=== PATIENT | male | born 1940 | race Caucasian/White ===

== ENCOUNTER → 2016-04-05 | Day surgery (SDC) | payer MEDICARE, BC ==
[~2016-04-05] MED LIST: ALPH400C2 PO; ASPI325T PO; BENA20TA3 PO; BENA5 PO; BIOTCAP PO; FISH1000 PO; FISH100020 PO; GARL400T2 PO; GARL500T; GENTAMICIN SULFATE 80 MG/2 ML VIAL ONE; GINKO BILOBA; GNP3TAB PO; IBUP-988 PO; LACTATED RINGER'S 1000 ML INJ 1,000 ML ONE; MELA3TAB14; MIDAZOLAM HCL 2 MG/2 ML VIAL ONE; MILK250C PO; MILKPOW; MISC1CAP2 PO; MULT-135 PO; NAPR220T95 PO; ONDANSETRON HCL 4 MG/2 ML VIAL IV PUSH ONE; PERI8.6T PO; PRESCAP5 PO; PRESCAP6 PO; PROPOFOL 100 MG/10 ML INJ IV ONE; SAWPOW; SODIUM CHLORIDE 0.9% 20 ML VIAL ONE; SODIUM CHLORIDE 0.9% SOLN 100 ML BAG IV ONE; TAB-TAB PO; VITA2000 PO; VITA400C28 PO; VITA400C70 PO; [UNRECOGNIZED DRUG - CODE] PO; [UNRECOGNIZED DRUG - CODE] PO; [UNRECOGNIZED DRUG - CODE] PO
--- NOTE | 2016-04-05 11:00 | TN ---
cc: KIMBERLY COLLINS M.D. DATE OF SURGERY: 04/05/2016 PREOPERATIVE DIAGNOSIS 1. Persistent suspicious cytology. 2. Family history of bladder cancer. POSTOPERATIVE DIAGNOSIS Bladder tumor (ICD-10 code D41.1). PROCEDURE Cystourethroscopy with bladder washings and transurethral resection of bladder tumor (TURBT) (CPT code 45981 and 65490). INDICATIONS Mr. Andrews is a 75-year-old gentleman with a history of persistent urine cytology which is suspicious for malignancy. He has previously undergone evaluations and unable to find the source. He presents now for further evaluation and possible random bladder biopsies and retrograde pyelography. FINDINGS Normal anterior urethra. The posterior urethra shows some mild to moderate bulbomembranous urethral stricture. The prostate shows bilobular bilateral hypertrophy with some mild obstructive component. The bladder itself shows some mild trabeculation. Ureteral orifice normal size, shape and position, effluxing clear urine. There is in the left lateral wall a small less than 5 mm sessile tumor consistent with transitional cell carcinoma. No additional abnormalities were identified. DETAILS OF PROCEDURE The procedure as well as the risks and benefits were explained to the patient and informed consent was obtained. The patient was taken to the major operative theatre where he was placed in the supine position. The patient was identified as well as the operative site. A universal timeout was performed in the standard fashion. At this time general anesthetic and prophylactic intravenous antibiotics consisting of gentamicin 80 mg was administered. After adequate anesthetic he was placed in low dorsal lithotomy position and prepped and draped in the usual standard fashion. At this time a 21-Polish cystoscope with a 30-degree lens was inserted into the urethra and bladder without difficulty. Using both a 30-degree lens and a 70-degree lens the entire bladder was systematically surveyed with the above findings. At this time using a 30-degree lens with rigid biopsy forceps the tumor was resected as well as the base of the tumor and sent separately for further pathological evaluation. At this time a Bugbee probe was then inserted to the working element of the scope and the area of biopsy was fulgurated as well as a rim of normal-appearing tissue surrounding it. Prior to the biopsy please note that bladder barbotage and bladder washings were performed using normal saline and sent for separate cytological evaluation. At this time after confirming hemostasis the bladder was decompressed, the cystoscope removed. The patient tolerated the procedure well, emerged from anesthetic without difficulty and transferred to the recovery room in stable condition to be discharged home when criteria is met. There were no obvious complications. MD TAMEKA Salazar/BENJA /10:16 AM /10:49 AM
== END | disposition home or self-care (01) ==
LOC: ESDC 06:13
PROVIDERS: ATTEND Urology
DX: C67.2 Malignant neoplasm of lateral wall of bladder (principal)
CPT/HCPCS: 00910; 51700; 52224; 76000; 88305; J1580; J2250; J2405; J3010; J7120; 88112; 88307

== ENCOUNTER 2016-07-20 14:21 | Inpatient (IN) | payer MEDICARE, BC ==
[~2016-07-20] VITALS: Ht 167.6 cm; Wt 81.2 kg
[~2016-07-20 14:21] MED LIST changes: -ALPH400C2 PO; -BENA20TA3 PO; -BIOTCAP PO; -FISH100020 PO; -GARL400T2 PO; -GENTAMICIN SULFATE 80 MG/2 ML VIAL ONE; -GNP3TAB PO; -IBUP-988 PO; -LACTATED RINGER'S 1000 ML INJ 1,000 ML ONE; -MIDAZOLAM HCL 2 MG/2 ML VIAL ONE; -MILK250C PO; -MISC1CAP2 PO; -MULT-135 PO; -NAPR220T95 PO; -ONDANSETRON HCL 4 MG/2 ML VIAL IV PUSH ONE; -PERI8.6T PO; -PRESCAP5 PO; -PRESCAP6 PO; -PROPOFOL 100 MG/10 ML INJ IV ONE; -SODIUM CHLORIDE 0.9% 20 ML VIAL ONE; -SODIUM CHLORIDE 0.9% SOLN 100 ML BAG IV ONE; -VITA2000 PO; -[UNRECOGNIZED DRUG - CODE] PO; -[UNRECOGNIZED DRUG - CODE] PO
[2016-07-20 14:27] VITALS: BP 222/96; PULSE 97; RESP 21; TEMP 98; O2SAT 96
[2016-07-20] MEDS ORDERED: HYDROmorphone HCL PF 1 MG/ML VIAL IM ONE (15:00)
[2016-07-20] MEDS ORDERED: BENA20TA3 PO (15:28)
[2016-07-20] MEDS ORDERED: ASPI325T PO (15:28)
[2016-07-20] MEDS ORDERED: VITA2000 PO (15:28)
[2016-07-20] MEDS ORDERED: PRESCAP5 PO (15:28)
[2016-07-20] MEDS ORDERED: PRESCAP6 PO (15:31)
[2016-07-20] MEDS ORDERED: MULT-135 PO (15:31)
[2016-07-20] MEDS ORDERED: ALPH400C2 PO (15:34)
[2016-07-20] MEDS ORDERED: [UNRECOGNIZED DRUG - CODE] PO (15:34)
[2016-07-20] MEDS ORDERED: FISH100020 PO (15:34)
[2016-07-20] MEDS ORDERED: GNP3TAB PO (15:39)
[2016-07-20] MEDS ORDERED: GARL400T2 PO (15:39)
[2016-07-20] MEDS ORDERED: [UNRECOGNIZED DRUG - CODE] PO (15:41)
[2016-07-20] MEDS ORDERED: MILK250C PO (15:41)
[2016-07-20] MEDS ORDERED: MISC1CAP2 PO (15:44)
[2016-07-20] MEDS ORDERED: [UNRECOGNIZED DRUG - CODE] PO (15:47)
[2016-07-20] MEDS ORDERED: BIOTCAP PO (15:48)
[2016-07-20] MEDS ORDERED: NAPR220T95 PO (15:49)
[2016-07-20] MEDS ORDERED: IBUP-988 PO (15:49)
--- NOTE | 2016-07-20 16:05 | RADRPT ---
EXAM DATE/TIME: 07/20/2016 15:43 [facility] COMPARISON: HUMERUS RIGHT (MIN 2VWS), July 20, 2016, 15:42. INDICATIONS : Right elbow pain after running into garage. MEDICAL HISTORY : None. SURGICAL HISTORY : None. ENCOUNTER: Initial ACUITY: 1 day PAIN SCORE: 10/10 LOCATION: Right elbow. FINDINGS: There is a comminuted fracture of the proximal ulna with distracted fragments extending over 3 cm. Th ere is soft tissue swelling posterior to the elbow. Radial head appears intact. CONCLUSION: Comminuted fracture of the proximal ulna. Boogie Schrader MD on July 20, 2016 at 16:01 Board Certified Radiologist. This report was verified electronically.
--- NOTE | 2016-07-20 16:06 | RADRPT ---
EXAM DATE/TIME: 07/20/2016 15:42 [facility] COMPARISON: ELBOW RIGHT LIMITED (AP & LAT), July 20, 2016, 15:43. INDICATIONS : Right humerus pain after running arm into garage door. MEDICAL HISTORY : None. SURGICAL HISTORY : None. ENCOUNTER: Initial ACUITY: 1 day PAIN SCORE: 10/10 LOCATION: Right distal humerus. FINDINGS: There is a heavily comminuted fracture of the proximal ulna at the elbow with displaced fracture frag ments seen. There is associated soft tissue swelling posterior to the olecranon. CONCLUSION: Proximal ulnar fracture. Boogie Schrader MD on July 20, 2016 at 16:04 Board Certified Radiologist. This report was verified electronically.
[2016-07-20] MEDS ORDERED: TETANUS/DIPHTHERIA TOXOID ADULT 0.5 ML VIAL IM ONE (16:30)
--- NOTE | 2016-07-20 16:43 | PD ---
HPI Chief Complaint: Fall Time Seen by Provider: 14:52 Travel History International Travel<30 days: No Contact w/Intl Traveler<30days: No Traveled to known affect area: No History of Present Illness HPI Is a 75-year-old man who presents to the emergency department after slip and fall on the rain. He was rushing in the rain to get into his garage, the pressure was already open an enema in the head knocking him backward onto his right side injuring his right elbow. He has severe right elbow pain. No LOC. His a superficial laceration was forehead. Tetanus is not up-to-date. No other complaints. On 2 aspirin daily. No blood thinners. History Past Medical History Narrative Medical Hypertension History of bladder CA, minimal, treated with local resection normally Social History Alcohol Use: Yes (4 GLASSES WINE NIGHTLY) Tobacco Use: No Allergies-Medications (Allergen,Severity, Reaction): Coded Allergies: No Known Allergies (Verified , 07/20/16) Reported Meds & Prescriptions Reported Meds & Active Scripts Active Reported Advil (Ibuprofen) 200 Mg Tab 400 Mg PO EVERY OTHER DAY Aleve (Naproxen Sodium) 220 Mg Tab 440 Mg PO EVERY OTHER DAY Biotin Unknown Strength Cap Unknown Dose PO HS Beta Carotene Unknown Strength Cap Unknown Dose PO HS Saw [place] Plus (Lang-8 Natural Products) 1 Cap Cap 900 Mg PO HS Milk Thistle 250 Mg Cap 250 Mg PO HS Gnp Melatonin (Melatonin) 3 Mg Tab 12 Mg PO HS Garlic 400 Mg Tab 800 Mg PO HS Alph-E (Vitamin E) 400 Unit Cap 400 Units PO HS Vitamin A 25,000 Unit Cap 25,000 Units PO HS Fish Oil 1000 mg ([place]-3 Fatty Acids) 1 Cap Cap 1,000 Mg PO HS Multi Vitamin (Multiple Vitamin) 1 Tab Tab 1 Tab PO HS Preservision-Lutein (Multiple Vitamins W/ Minerals) 1 Cap 1 Cap PO HS Vitamin D3 (Cholecalciferol) 2,000 Unit Cap 2,000 Units PO DAILY Benazepril-Hydrochlorothiazide 20-12.5 Mg Tab 1 Tab PO DAILY Aspirin 325 Mg Tab 650 Mg PO DAILY Review of Systems Except as stated in HPI: all other systems reviewed are Neg Physical Exam Narrative GENERAL: 68 several man, uncomfortable, nontoxic. SKIN: Focused skin assessment warm/dry. HEAD: Normocephalic. Superficial laceration to the forehead. EYES: Pupils equal and round. No scleral icterus. No injection or drainage. ENT: No nasal bleeding or discharge. Mucous membranes pink and moist. NECK: Trachea midline. No JVD. CARDIOVASCULAR: Regular rate and rhythm. No murmur appreciated. RESPIRATORY: No accessory muscle use. Clear to auscultation. Breath sounds equal bilaterally. GASTROINTESTINAL: Abdomen soft, non-tender, nondistended. Hepatic and splenic margins not palpable. MUSCULOSKELETAL: Obvious swelling to the right elbow. Severe pain with any range of motion. Distally intact. NEUROLOGICAL: Awake and alert. No obvious cranial nerve deficits. Motor grossly within normal limits. Normal speech. PSYCHIATRIC: Appropriate mood and affect; insight and judgment normal. Data Data Last Documented VS Vital Signs Date Time Temp Pulse Resp B/P Pulse Ox O2 Delivery O2 Flow Rate FiO2 07/20/16 14:27 98.0 97 21 222/96 96 Orders Hydromorphone Pf Inj (Dilaudid Pf Inj) (07/20/16 15:00) Humerus (Min 2vws) (07/20/16 ) Elbow, Limited (Ap&Lat) (07/20/16 ) Complete Blood Count With Diff (07/20/16 16:17) Comprehensive Metabolic Panel (07/20/16 16:17) Chest, Single Ap (07/20/16 ) Electrocardiogram (07/20/16 ) Iv Access Insert/Monitor (07/20/16 16:17) Tetanus/Diphtheria Tox Adult (Tetanus/Di (07/20/16 16:30) [employer] Request For Service (07/20/16 16:21) [facility] Medical Decision Making Medical Screen Exam Complete: Yes Emergency Medical Condition: Yes Interpretation(s) Right elbow x-ray: Proximal ulnar fracture. Differential Diagnosis Elbow fracture, contusion, dislocation, other Narrative Course Medical decision making This 75-year-old man who presents to the emergency department complaining of right elbow pain, x-ray confirms severely comminuted olecranon fracture. Spoke with Rafat, with Dr. Cavanaugh. We'll plan on surgical repair tomorrow. Admission to medicine. Diagnosis Primary Impression: Fracture, ulna, proximal Admitting Information Admitting Physician Requests: Admit Julio C Villa MD July 20, 2016 16:43
[2016-07-20 16:49] LABS: AUTOMATED NEUTROPHIL # 3.1 TH/MM3 (1.8-7.7); BASOPHIL % 0.6 % (0.0-2.0); EOSINOPHIL # 0.3 TH/MM3 (0-0.4); EOSINOPHIL % 4.1 % (0.0-4.0); HEMATOCRIT 42.5 % (39.0-51.0); HEMO FLAGS DIFF FINAL; LYMPH % 34.1 % (9.0-44.0); LYMPHOCYTE # 2.1 TH/MM3 (1.0-4.8); MEAN CELL VOLUME 90.7 FL (80.0-100.0); MEAN CORPUSCULAR HEMOGLOBIN 31.2 PG (27.0-34.0); MEAN CORPUSCULAR HGB CONC 34.4 % (32.0-36.0); MONO % 10.1 % (0.0-8.0); NEUT % 51.1 % (16.0-70.0); PLATELET COUNT 134 TH/MM3 (150-450); RED BLOOD COUNT 4.69 MIL/MM3 (4.50-5.90); RED CELL DISTRIBUTION WIDTH 14.1 % (11.6-17.2); WHITE BLOOD COUNT 6.1 TH/MM3 (4.0-11.0)
[2016-07-20 16:53] LABS: ALKALINE PHOSPHATASE 61 U/L (45-117); ALT (GPT) 76 U/L (12-78); ANION GAP 10 MEQ/L (5-15); AST (GOT) 54 U/L (15-37); BICARBONATE 26.5 MEQ/L (21.0-32.0); BLOOD UREA NITROGEN 17 MG/DL (7-18); CHLORIDE 104 MEQ/L (98-107); GLOMERULAR FILTRATION RATE 73 ML/MIN (>89); SODIUM (NA) 140 MEQ/L (136-145); TOTAL BILIRUBIN ADULT 0.5 MG/DL (0.2-1.0)
[2016-07-20 16:59] LABS: POTASSIUM 4.2 MEQ/L (3.5-5.1)
[2016-07-20] MEDS ORDERED: HYDROmorphone HCL PF 1 MG/ML VIAL IVS ONE (17:00)
--- NOTE | 2016-07-20 17:10 | HHI.HP ---
[facility]Staff Admission Diagnosis right olecranon fx Diagnoses: Chief Complaint: Elbow pain Travel History International Travel<30 Days: No Contact w/Intl Traveler <30 Da: No Traveled to Known Affected Are: No History of Present Illness Written by Chirag Tenorio, acting as scribe for Dr. Ruiz on 07/20/16 at 17:02. 75-year-old male with a past medical history of HTN who presented after a fall. The patient states that he was riding in the rain today and trying to open his garage door when he slipped, fell, landed into his garage floor. He states that he initially struck his right elbow against the garage door and had immediate, severe pain. He states that his elbow broke his fall, but he did hit his head as well. He denies any loss consciousness. He denies any new numbness or tingling. He takes aspirin at home because he wants to, denies any history of heart disease. The patient actually had preop cardiology evaluation at the [facility] in February before cataract surgery. Dr. Esparza with orthopedics was contacted from the ED and plan on operative intervention of comminuted right ulnar fracture. Review of Systems Except as stated in HPI: all other systems reviewed are Neg Past Family Social History Past Medical History Hypertension Mild COPD Past Surgical History Appendectomy Hernia surgery Lithotripsy next and cataract surgery Bladder cancer removal Reported Medications Advil (Ibuprofen) 200 Mg Tab 400 Mg PO EVERY OTHER DAY Aleve (Naproxen Sodium) 220 Mg Tab 440 Mg PO EVERY OTHER DAY Biotin Unknown Strength Cap Unknown Dose PO HS Beta Carotene Unknown Strength Cap Unknown Dose PO HS Saw [place] Plus ([employer] Natural Products) 1 Cap Cap 900 Mg PO HS Milk Thistle 250 Mg Cap 250 Mg PO HS Gnp Melatonin (Melatonin) 3 Mg Tab 12 Mg PO HS Garlic 400 Mg Tab 800 Mg PO HS Alph-E (Vitamin E) 400 Unit Cap 400 Units PO HS Vitamin A 25,000 Unit Cap 25,000 Units PO HS Fish Oil 1000 mg ([place]-3 Fatty Acids) 1 Cap Cap 1,000 Mg PO HS Multi Vitamin (Multiple Vitamin) 1 Tab Tab 1 Tab PO HS Preservision-Lutein (Multiple Vitamins W/ Minerals) 1 Cap 1 Cap PO HS Vitamin D3 (Cholecalciferol) 2,000 Unit Cap 2,000 Units PO DAILY Benazepril-Hydrochlorothiazide 20-12.5 Mg Tab 1 Tab PO DAILY Aspirin 325 Mg Tab 650 Mg PO DAILY Allergies: Coded Allergies: No Known Allergies (Verified , 07/20/16) Active Ordered Medications Current Medications Medications (Trade) Dose Ordered Sig/Marian Route Start Time Stop Time Status Last Admin (Dilaudid Pf Inj) 1 mg ONCE ONCE IVS 07/20/16 17:00 07/20/16 17:01 Family History Mother passed from breast cancer Father passed from bladder cancer Social History The patient drinks the fifth of wine every night, denies problems with withdrawal Denies any tobacco use Lives at home with his Physical Exam Vital Signs Vital Signs Date Time Temp Pulse Resp B/P Pulse Ox O2 Delivery O2 Flow Rate FiO2 07/20/16 14:27 98.0 97 21 222/96 96 Physical Exam GENERAL: Well-developed well-nourished. In no acute distress. SKIN: Warm and dry. Superficial abrasion on the forehead. HEENT: Normocephalic. Pupils equal and round. Mucous membranes pink and moist. CARDIOVASCULAR: Regular rate and rhythm. No murmur appreciated. RESPIRATORY: No accessory muscle use. Clear to auscultation. Breath sounds equal bilaterally. GASTROINTESTINAL: Abdomen soft, non-tender, nondistended. Bowel sounds x4. MUSCULOSKELETAL: Right arm splinted. Able to move fingers on right hand. No clubbing or cyanosis. No edema. NEUROLOGICAL: Awake and alert. No focal neurological deficits. Moves upper and lower extremities spontaneously. Normal speech. Sensation grossly intact in right hand. PSYCHIATRIC: Appropriate mood and affect; insight and judgment normal. Laboratory Laboratory Tests Test 07/20/16 16:20 White Blood Count 6.1 Red Blood Count 4.69 Hemoglobin 14.6 Hematocrit 42.5 Mean Corpuscular Volume 90.7 Mean Corpuscular Hemoglobin 31.2 Mean Corpuscular Hemoglobin 34.4 Concent Red Cell Distribution Width 14.1 Platelet Count 134 Mean Platelet Volume 9.8 Neutrophils (%) (Auto) 51.1 Lymphocytes (%) (Auto) 34.1 Monocytes (%) (Auto) 10.1 Eosinophils (%) (Auto) 4.1 Basophils (%) (Auto) 0.6 Neutrophils # (Auto) 3.1 Lymphocytes # (Auto) 2.1 Monocytes # (Auto) 0.6 Eosinophils # (Auto) 0.3 Basophils # (Auto) 0.0 CBC Comment DIFF FINAL Differential Comment Sodium Level 140 Potassium Level 4.2 Chloride Level 104 Carbon Dioxide Level 26.5 Anion Gap 10 Blood Urea Nitrogen 17 Creatinine 0.99 Estimat Glomerular Filtration 73 Rate Random Glucose 103 Calcium Level 9.4 Total Bilirubin 0.5 Aspartate Amino Transf 54 (AST/SGOT) Alanine Aminotransferase 76 (ALT/SGPT) Alkaline Phosphatase 61 Total Protein 7.5 Albumin 3.9 Result Diagram: 07/20/16 1620 07/20/16 1620 Imaging Last Impressions Humerus X-Ray 07/20/16 0000 Signed Impressions: Service Date/Time: Wednesday, July 20, 2016 15:42 - CONCLUSION: Proximal ulnar fracture. Boogie Schrader MD Elbow X-Ray 07/20/16 0000 Signed Impressions: Service Date/Time: Wednesday, July 20, 2016 15:43 - CONCLUSION: Comminuted fracture of the proximal ulna. Boogie Schrader MD Assessment and Plan Problem List: (1) Fracture, ulna, proximal ICD Code: S52.009A Status: Acute (2) Hypertensive urgency ICD Code: I16.0 Status: Acute (3) Alcohol abuse ICD Code: F10.10 Status: Acute Assessment and Plan 75-year-old male with a past medical history of HTN who presented after a fall Comminuted fracture of the proximal ulna Reviewed: X-rays of the right arm revealed comminuted fracture of the proximal ulna. -Orthopedics consulted, planning on operative intervention tomorrow -Pain control with oral Avelox And IV Morphine. -Perioperative care per orthopedics including diet, activity, anticoagulation, rehabilitation recommendations Mechanical fall. Forehead laceration. -Neuro checks -Bactroban Hypertension: Accelerated upon admission, likely secondary to pain. -Resume home blood pressure medications -IV vancomycin as needed Alcohol abuse: Cessation counseling. [facility] protocol. DVT prophylaxis: Hold chemical prophylaxis for now pending operative intervention. This note was transcribed by bri ROBB I, Dr. You Ruiz personally performed the history, physical exam, and medical decision making; and confirmed the accuracy of the information in the transcribed note. Authenticated by Dr. You Ruiz on 07/20/16 at 17:11. Code Status Full code Discussed Condition With Patient with at bedside, ED staff Chirag Tenorio July 20, 2016 17:10 You Ruiz MD July 20, 2016 17:13
--- NOTE | 2016-07-20 17:14 | RADRPT ---
EXAM DATE/TIME: 07/20/2016 16:58 [facility] COMPARISON: No previous studies available for comparison. INDICATIONS : Chest pain. MEDICAL HISTORY : None. SURGICAL HISTORY : None. ENCOUNTER: Initial ACUITY: 1 day PAIN SCORE: 5/10 LOCATION: Bilateral chest FINDINGS: A single view of the chest demonstrates the lungs to be symmetrically aerated without evidence of mas s, infiltrate or effusion. The cardiomediastinal contours are unremarkable. Osseous structures are intact. CONCLUSION: Normal examination. Boogie Schrader MD on July 20, 2016 at 17:12 Board Certified Radiologist. This report was verified electronically.
[2016-07-20] MEDS ORDERED: SODIUM CHLORIDE 0.9% FLUSH 10 ML FLUSH IV FLUSH PRN (17:15)
[2016-07-20] MEDS ORDERED: LORazepam 2 MG/ML VIAL IV PUSH PRN ×4 (17:15)
[2016-07-20] MEDS ORDERED: MORPHINE SULFATE 4 MG/ML INJ IV PRN (17:15)
[2016-07-20] MEDS ORDERED: ENALAPRILAT 1.25 MG/ML VIAL IV PUSH PRN (17:15)
[2016-07-20] MEDS ORDERED: ONDANSETRON HCL 4 MG/2 ML VIAL IVP PRN (17:15)
[2016-07-20] MEDS ORDERED: FLUMAZENIL 0.5 MG/5 ML VIAL IV PUSH PRN (17:15)
[2016-07-20] MEDS ORDERED: LORazepam 2 MG TAB PO PRN (17:15)
[2016-07-20] MEDS ORDERED: oxyCODONE/ACETAMINOPHEN 10 MG/325 MG TAB PO PRN (17:15)
[2016-07-20] MEDS ORDERED: NALOXONE HCL 0.4 MG/ML AMP IV PRN (17:15)
[2016-07-20] MEDS ORDERED: ACETAMINOPHEN 325 MG TAB PO PRN ×2 (17:15)
[2016-07-20 18:00] VITALS: BP 167/81; PULSE 76; RESP 21; O2SAT 97
[2016-07-20 20:00] VITALS: BP 138/82; PULSE 75; RESP 16; TEMP 96.4; O2SAT 99
[2016-07-20] MEDS: SODIUM CHLORIDE 0.9% FLUSH 10 ML FLUSH IV FLUSH SCH (20:41)
[2016-07-20] MEDS: DOCUSATE SODIUM 50 MG/SENNA 8.6 MG TAB PO SCH (20:41)
[2016-07-20] MEDS ORDERED: MUPIROCIN 2% OINT 22 GM TUBE TOPICAL SCH (21:00)
[2016-07-20] MEDS: oxyCODONE/ACETAMINOPHEN 5 MG/325 MG TAB PO PRN (22:22)
[2016-07-21] VITALS: BP 150/72; PULSE 77; RESP 18; TEMP 96.5; O2SAT 98
[2016-07-21 04:15] VITALS: BP 153/95; PULSE 84; RESP 18; TEMP 97.5; O2SAT 98
[2016-07-21] MEDS: oxyCODONE/ACETAMINOPHEN 5 MG/325 MG TAB PO PRN (04:45)
[2016-07-21] MEDS: LORazepam 1 MG TAB PO PRN ×2 (04:45→16:50)
[2016-07-21] MEDS ORDERED: SODIUM CHLOR 0.9% 250 ML INJ 250 ML ONE (06:58)
[2016-07-21] MEDS ORDERED: VANCOMYCIN HCL 1000 MG VIAL ONE (06:58)
[2016-07-21] MEDS ORDERED: GENTAMICIN SULFATE 80 MG/2 ML VIAL ONE (06:58)
--- NOTE | 2016-07-21 07:00 | PD.ORT.PN ---
Subjective Subjective Remarks Slip and fall in the rain yesterday and fell into wall. Contusion to scalp as well as right olecranon fracture. No other complaints Objective Vitals Vital Signs Date Time Temp Pulse Resp B/P Pulse Ox O2 Delivery O2 Flow Rate FiO2 07/21/16 04:15 97.5 84 18 153/95 98 07/21/16 00:00 96.5 77 18 150/72 98 07/20/16 20:00 96.4 75 16 138/82 99 07/20/16 18:00 76 21 167/81 97 Room Air 07/20/16 14:27 98.0 97 21 222/96 96 Result Diagram: 07/20/16 1620 07/20/16 1620 Imaging Last 72 hours Impressions Humerus X-Ray 07/20/16 0000 Signed Impressions: Service Date/Time: Wednesday, July 20, 2016 15:42 - CONCLUSION: Proximal ulnar fracture. Boogie Schrader MD Elbow X-Ray 07/20/16 0000 Signed Impressions: Service Date/Time: Wednesday, July 20, 2016 15:43 - CONCLUSION: Comminuted fracture of the proximal ulna. Boogie Schrader MD Chest X-Ray 07/20/16 0000 Signed Impressions: Service Date/Time: Wednesday, July 20, 2016 16:58 - CONCLUSION: Normal examination. Boogie Schrader MD Objective Remarks Right upper extremity: Splint intact. No pain at shoulder. Distally intact sensation over the radial ulnar and median nerve distributions with good capillary refills Assessment & Plan Assessment and Plan Right olecranon fracture Maintain splint Nothing by mouth Sign consents for surgery this morning with Dr. Cavanaugh for ORIF of olecranon Possible discharge is afternoon to home if pain controlled Follow-up with Dr. Cavanaugh or PA in 2 weeks Caleb Hidalgo Jr. July 21, 2016 06:59
[2016-07-21] MEDS ORDERED: FAMOTIDINE 20 MG/2 ML VIAL ONE (07:19)
[2016-07-21] MEDS ORDERED: MIDAZOLAM HCL 2 MG/2 ML VIAL ONE (07:19)
[2016-07-21 07:34] LABS: BASOPHIL % 0.2 % (0.0-2.0); EOSINOPHIL # 0.1 TH/MM3 (0-0.4); EOSINOPHIL % 1.3 % (0.0-4.0); HEMATOCRIT 42.3 % (39.0-51.0); HEMO FLAGS DIFF FINAL; LYMPH % 24.3 % (9.0-44.0); LYMPHOCYTE # 2.2 TH/MM3 (1.0-4.8); MEAN CELL VOLUME 91.7 FL (80.0-100.0); MEAN CORPUSCULAR HEMOGLOBIN 30.8 PG (27.0-34.0); MEAN CORPUSCULAR HGB CONC 33.6 % (32.0-36.0); NEUT % 65.2 % (16.0-70.0); PLATELET COUNT 130 TH/MM3 (150-450); RED BLOOD COUNT 4.61 MIL/MM3 (4.50-5.90); RED CELL DISTRIBUTION WIDTH 13.7 % (11.6-17.2); WHITE BLOOD COUNT 9.2 TH/MM3 (4.0-11.0)
[2016-07-21] MEDS ORDERED: ACETAMINOPHEN/HYDROcodone 325 MG/7.5 MG TAB PO PRN (08:00)
[2016-07-21] MEDS ORDERED: Post-op Orders (for Pharmacy) MISC XX ONE (08:00)
[2016-07-21] MEDS ORDERED: ceFAZolin 2 GM PREMIX 50 ML IV SCH ×2 (08:00→12:00)
[2016-07-21] MEDS ORDERED: MORPHINE SULFATE 4 MG/ML INJ IV PUSH PRN (08:00)
[2016-07-21 08:10] LABS: ALKALINE PHOSPHATASE 61 U/L (45-117); ALT (GPT) 70 U/L (12-78); ANION GAP 11 MEQ/L (5-15); AST (GOT) 34 U/L (15-37); BICARBONATE 26.4 MEQ/L (21.0-32.0); BLOOD UREA NITROGEN 22 MG/DL (7-18); CHLORIDE 101 MEQ/L (98-107); GLOMERULAR FILTRATION RATE 73 ML/MIN (>89); POTASSIUM 3.7 MEQ/L (3.5-5.1); SODIUM (NA) 138 MEQ/L (136-145); TOTAL BILIRUBIN ADULT 0.6 MG/DL (0.2-1.0)
--- NOTE | 2016-07-21 08:21 | MB ---
cc: REYNAFRANKY DATE OF CONSULTATION 07/21/2016 REASON FOR CONSULTATION Right olecranon fracture. CONSULTING PHYSICIAN Dr. Ruiz MARC Costa is a 75-year-old male who was running in the rain. He was going through his garage door when he slipped. He did hit his head. He also landed on his right elbow. He had immediate right elbow pain. He presented to the emergency room where x-rays revealed a right olecranon fracture. Pain is worse with movement and is improved with rest. He is currently awake and alert on the seventh floor. His primary complaint is his right elbow. Pain is worse with movement. PAST MEDICAL HISTORY ILLNESSES 1. Hypertension 2. Mild COPD SURGERIES 1. Appendectomy 2. Hernia repair 3. Lithotripsy 4. Bladder cancer excision MEDICATIONS Include: 1. Advil 1. Biotin 2. Saw palmetto 3. Milk thistle 4. Garlic 5. Multivitamin 6. Benazepril 7. Aspirin ALLERGIES NO KNOWN DRUG ALLERGIES. FAMILY HISTORY Positive for breast cancer in her mother and bladder cancer in his father. SOCIAL HISTORY The patient drinks wine every night. He denies tobacco or drug use. He lives with his . REVIEW OF SYSTEMS The patient denies headache, visual changes, neck pain, chest pain, shortness of breath, abdominal pain, nausea, vomiting, recent weight loss or numbness or tingling of extremities. He complains of right elbow pain. He does have some soreness where he hit his head. PHYSICAL EXAMINATION The patient is a well-developed, well-nourished 75-year male who is awake and alert. He is alert and oriented x3. VITAL SIGNS: Temperature 97.5, pulse 84, respirations 18, blood pressure 153/95, O2 sat 98% on room air. HEAD: The patient is normocephalic except for a small abrasion on his scalp. EYES: Pupils are equal. NECK: Soft, nontender. Trachea is midline. ABDOMEN: Soft, nontender, nondistended. EXTREMITIES: Examination of right arm reveals no tenderness around the shoulder, wrist or fingers. He has intact sensation in all fingers. Examination of elbow reveals mild swelling present. He is very tender to palpation on the olecranon. He has pain with any elbow motion. Forearm compartments are soft. Sensation is intact in all fingers. Examination of the left arm reveals no pain with shoulder, elbow or wrist motion. He has intact sensation in all fingers. He has good cap refill in all fingers. Skin is intact. Examination of bilateral lower extremities reveals no significant pain with hip, knee or ankle motion. Skin is intact bilaterally. Dorsalis pedis pulses are palpable. Skin is intact. X-RAYS X-rays of the right elbow were reviewed. X-rays reveal a displaced right olecranon fracture. IMPRESSION Displaced right olecranon fracture. PLAN Treatment options were discussed with the patient. At this point, I would recommend right olecranon open reduction internal fixation. The risks of surgery include bleeding, infection, injury to arteries, nerves and blood vessels, elbow stiffness, loss of motion, painful hardware, wound infection, as well as medical complications including blood clot, stroke, heart attack and . All questions were answered. I will plan on surgery today. A mid-level provider in my office (nurse practitioner or physician assistant federal public defender) may see this patient on follow-up visits and continue to implement the objectives of this plan including: Starting or adjusting medications, injections , cast application, orthotics, brace application, physical therapy, radiological studies (including x-ray, MRI, CT, ultrasound, bone scan), vascular studies, neurologic studies, specialist consultation, and proceeding with surgical management, as appropriate. MD TOVA Bernard/KURT /7:48 AM /8:05 AM SUSAN
--- NOTE | 2016-07-21 08:58 | PD.OP ---
cc: Jayy Cavanaugh MD Operative Report Date of Surgery: July 21, 2016 Preoperative Diagnosis: Comminuted right olecranon fracture Postoperative Diagnosis: Procedure: Open reduction internal fixation right olecranon Anesthesia: Gen. Surgeon: Jayy Cavanaugh Flooring Sales Manager(s): SANTHOSH Jean PA-C The surgical procedure was assisted by my physician podiatric assistant. My P.A. presence was necessary throughout this case for the manipulation and positioning of the surgical extremity. My P.A. was assisting me throughout the duration of this procedure. The skill set of a physician podiatric assistant was medically necessary to complete this procedure. During the surgical case the construction technician was working at the back table and the physician podiatric assistant was directly assisting me. Operation and Findings: Patient was seen and evaluated preoperatively. Patient was found to have a displaced comminuted intra-articular right olecranon fracture. The risk and benefits of the surgery were discussed in depth and informed consent was obtained. Risk of surgery include bleeding, infection, painful hardware, wound , case, elbow stiffness, loss of motion, elbow arthritis, injuries to arteries nerves or blood vessels, weakness and numbness of hand, as well as medical complications associated with general anesthesia. All questions were answered. Patient was brought to operating room. IV sedation and anesthesia were administered. Patient was placed into a lateral decubitus position. Timeout procedure was performed. IV antibiotics were administered prior to incision. The operative arm was prepped with alcohol followed by Hibiclens and draped in usual sterile fashion. Procedure began with a 4 inch incision over the olecranon. Subcutaneous tissue dissected with Bovie. Fracture site was visualized. Fascia was elevated around the fracture site. There was mild comminution of the fracture site. Fracture fragments were gently manipulated. A fracture tenaculum was used to aid in reduction. Multiple K wires result provisional fixation. A Synthes proximal plate was selected. Plate was provisionally held with K wires 3.5 cortical screws were used to compress plate to bone. Multiple cortical screws were placed in the ulna shaft. Multiple locking screws were placed in the proximal ulna. All screws were predrilled and premeasured for appropriate length. A #5 FiberWire suture was now passed through the triceps tendon. The suture was now tied to the plate for additional stability. K wires were removed. Final fluoroscopy revealed excellent of fractures well-placed hardware. Articular surface appeared to be in near anatomic alignment. Wound was now thoroughly irrigated. Incision was now closed with #1 Vicryl, 3-0 Vicryl, and cally. Sterile dressings were applied. Patient's placed a well molded well-padded splint. Patient was transferred to recovery in stable condition. Jayy Cavanaugh MD July 21, 2016 08:57
[2016-07-21] MEDS ORDERED: fentaNYL CITRATE 250 MCG/5 ML AMP ONE (09:27)
[2016-07-21] MEDS ORDERED: *morphine SULFATE 8 MG/ML PERIprocedure ONLY ONE ×2 (09:29→09:34)
[2016-07-21] MEDS ORDERED: DO NOT ADM ANY ANTICOAGULANT DRUGS PRN (10:00)
[2016-07-21 10:40] VITALS: BP 131/67; PULSE 65; RESP 20; TEMP 96.1; O2SAT 100
[2016-07-21] MEDS: ACETAMINOPHEN/HYDROcodone 325 MG/7.5 MG TAB PO PRN ×2 (11:21→18:03)
[2016-07-21] MEDS: SODIUM CHLORIDE 0.9% FLUSH 10 ML FLUSH IV FLUSH SCH (11:25)
[2016-07-21] MEDS ORDERED: PROPOFOL 200 MG/20 ML AMP IV ONE (12:00)
[2016-07-21] MEDS ORDERED: NEOSTIGMINE 3 MG/3 ML SYR IV ONE (12:00)
[2016-07-21] MEDS ORDERED: ONDANSETRON HCL 4 MG/2 ML VIAL IV PUSH ONE (12:00)
[2016-07-21] MEDS ORDERED: LACTATED RINGER'S 1000 ML INJ 1,000 ML IV ONE (12:00)
--- NOTE | 2016-07-21 12:44 | RADRPT ---
EXAM DATE/TIME: 07/21/2016 08:40 [place] COMPARISON: ELBOW RIGHT LIMITED (AP & LAT), July 20, 2016, 15:43. INDICATIONS : ORIF right olecranon. MEDICAL HISTORY : None. SURGICAL HISTORY : None. ENCOUNTER: Subsequent ACUITY: 2 days PAIN SCORE: Non-responsive. LOCATION: Right olecranon. FINDINGS: 3 spot fluoroscopic images of the right elbow obtained in the operating room during a procedure demon strate a posterior proximal ulna side plate with interlocking screws and a single lag screw. This tra verses the olecranon region fracture. CONCLUSION: Improved anatomic alignment following proximal right ulna ORIF. Ferdinand Castellanos MD on July 21, 2016 at 12:27 Board Certified Radiologist. This report was verified electronically.
--- NOTE | 2016-07-21 13:23 | HHI.PR ---
Subjective Remarks Follow-up Comminuted fracture of the proximal ulna 07/21/16-patient seen and examined, he status post Open reduction internal fixation right olecranon ; states pain is currently controlled. No other complaint. Objective Vitals Vital Signs Date Time Temp Pulse Resp B/P Pulse Ox O2 Delivery O2 Flow Rate FiO2 07/21/16 10:40 96.1 65 20 131/67 100 07/21/16 10:00 62 18 145/69 100 Nasal Cannula 2 07/21/16 09:45 63 18 132/64 99 Nasal Cannula 2 07/21/16 09:30 64 18 148/78 100 Nasal Cannula 2 07/21/16 09:20 97.3 69 18 148/81 100 Nasal Cannula 2 07/21/16 04:15 97.5 84 18 153/95 98 07/21/16 00:00 96.5 77 18 150/72 98 07/20/16 20:00 96.4 75 16 138/82 99 07/20/16 18:00 76 21 167/81 97 Room Air 07/20/16 14:27 98.0 97 21 222/96 96 I/O 07/20/16 07/20/16 07/20/16 07/21/16 07/21/16 07/21/16 07:00 15:00 23:00 07:00 15:00 23:00 Intake Total 2000 ml Output Total 100 ml Balance 1900 ml Intake Oral 0 ml IV Total 800 ml Other 1200 ml Output Urine Total 0 ml Estimated Blood Loss 100 ml Other 0 ml # Voids 2 Result Diagram: 07/21/16 0711 07/21/16 0711 Imaging Last Impressions Elbow X-Ray 07/21/16 0000 Signed Impressions: Service Date/Time: June 08:40 - CONCLUSION: Improved anatomic alignment following proximal right ulna ORIF. Ferdinand Castellanos MD Humerus X-Ray 07/20/16 0000 Signed Impressions: Service Date/Time: Wednesday, July 20, 2016 15:42 - CONCLUSION: Proximal ulnar fracture. Boogie Schrader MD Chest X-Ray 07/20/16 0000 Signed Impressions: Service Date/Time: Wednesday, July 20, 2016 16:58 - CONCLUSION: Normal examination. Boogie Schrader MD Objective Remarks GENERAL: NAD SKIN: Warm and dry. HEAD: Normocephalic. EYES: No scleral icterus. No injection or drainage. NECK: Supple, trachea midline. No JVD or lymphadenopathy. CARDIOVASCULAR: Regular rate and rhythm without murmurs, gallops, or rubs. RESPIRATORY: Breath sounds equal bilaterally. No accessory muscle use. GASTROINTESTINAL: Abdomen soft, non-tender, nondistended. MUSCULOSKELETAL: No cyanosis, or edema. RUE in sling; status post ORIF- neurovascular intact BACK: Nontender without obvious deformity. No CVA tenderness. Procedures Open reduction internal fixation right olecranon 07/21/16 A/P Problem List: (1) Fracture, ulna, proximal ICD Code: S52.009A Status: Acute (2) Hypertensive urgency ICD Code: I16.0 Status: Acute (3) Alcohol abuse ICD Code: F10.10 Status: Acute Assessment and Plan 75-year-old male with a past medical history of HTN who presented after a fall Comminuted fracture of the proximal ulna Reviewed: X-rays of the right arm revealed comminuted fracture of the proximal ulna. -Orthopedics consulted and patient is status post Open reduction internal fixation right olecranon 07/21/16 -Continue current pain management Likely discharge home today if pain is control Mechanical fall. Forehead laceration. -Neuro checks -Bactroban Hypertension: Accelerated upon admission, likely secondary to pain.-Now resolved -Continue with home blood pressure medications Alcohol abuse: Cessation counseling. Continue with CIWA protocol. DVT prophylaxis: SCD Discharge Planning Discharge patient to home Condition on discharge: Improved Regular Diet as tolerated [facility] activity Rx written: see EMR Follow-up with primary care physician in 1 week Orthopedic surgery in 2 weeks You Ruiz MD July 21, 2016 13:23
[2016-07-21] MEDS: DOCUSATE SODIUM 50 MG/SENNA 8.6 MG TAB PO SCH (13:41)
[2016-07-21] MEDS ORDERED: PERI8.6T PO (14:14)
[2016-07-21 15:35] VITALS: BP 157/73; PULSE 78; RESP 20; TEMP 96.5; O2SAT 97
--- NOTE | 2016-07-21 17:26 | EKG ---
Date Performed: 07/20/2016 Time Performed: 17:10:46 PTAGE: 75 years EKG: Sinus rhythm WITH FIRST DEGREE AV BLOCK INFERIOR MYOCARDIAL INFARCTION ABNORMAL ECG PREVIOUS TRACING : 04/26/2009 16.36 Compared to prior tracing no significant change DOCTOR: Donnell Diehl Interpretating Date/Time 07/21/2016 17:24:43
== END 2016-07-21 19:00 | disposition home or self-care (01) | DRG 512 ==
LOC: NEPD 14:21 → NEDA 17:02 → HOCB 19:14
PROVIDERS: ADMIT Hospitalist; ATTEND Hospitalist
PROC: 0PSK04Z Reposition Right Ulna with Internal Fixation Device, Open Approach (ICD-10-PCS; principal; 2016-07-21 07:27)
DX: S52.031A Displaced fracture of olecranon process with intraarticular extension of right ulna, initial encounter for closed fracture (principal); J44.9 Chronic obstructive pulmonary disease, unspecified; I10 Essential (primary) hypertension; W01.0XXA Fall on same level from slipping, tripping and stumbling without subsequent striking against object, initial encounter; Y92.89 Other specified places as the place of occurrence of the external cause; S01.81XA Laceration without foreign body of other part of head, initial encounter; F10.10 Alcohol abuse, uncomplicated
CPT/HCPCS: 29105; 71010; 73060; 73070; 76000; 80053; 85025; 90714; 93005; 96372; 96374; C1713; J0690; J1170; J1580; J2250; J2270; J2405; J2710; J3010; J3370; J7050; J7120

== ENCOUNTER 2016-07-30 08:49 | Emergency (ER) | payer MEDICARE, BC ==
[~2016-07-30] VITALS: Ht 167.6 cm; Wt 77.0 kg
[~2016-07-30 08:49] MED LIST changes: +ALPH400C2 PO; +BENA20TA3 PO; -BENA5 PO; +BIOTCAP PO; -FISH1000 PO; +FISH100020 PO; +GARL400T2 PO; -GARL500T; -GINKO BILOBA; +GNP3TAB PO; +IBUP-988 PO; -MELA3TAB14; +MILK250C PO; -MILKPOW; +MULT-135 PO; +PERI8.6T PO; +PRESCAP6 PO; -SAWPOW; -TAB-TAB PO; +VITA2000 PO; -VITA400C28 PO; -VITA400C70 PO; +[UNRECOGNIZED DRUG - CODE] PO; +[UNRECOGNIZED DRUG - CODE] PO
[2016-07-30 08:52] VITALS: BP 140/82; PULSE 92; RESP 20; TEMP 97.9; O2SAT 97
--- NOTE | 2016-07-30 09:17 | PD ---
HPI Chief Complaint: Radiographer Mammographer Problem Time Seen by Provider: 09:02 Travel History International Travel<30 days: No Contact w/Intl Traveler<30days: No Traveled to known affect area: No History of Present Illness HPI Patient is a 75-year-old female who presents to emergency room with complaints of right hand swelling and color change. Patient reports that he suffered an injury to his right elbow on July 21, reports that he was running in the rain and slipped and hit his elbow on the garage door. Patient was brought to the operating room for an open reduction internal fixation of his right olecranon by Dr. Cavanaugh on July 22, 2016. Patient reports that he has been feeling fine, but reports that his splint feels tight, reports that he has noticed increased bruising and blue color to his right hand with swelling. Patient reports no pain or numbness to his hands, reports that he has an appointment with his orthopedic surgeon on Monday, patient just requests that his dressings to be loosened PFSH Past Medical History Hx Anticoagulant Therapy: No Cardiovascular Problems: Yes (HTN) Chemotherapy: No Cerebrovascular Accident: No Diabetes: No Hypertension: Yes Respiratory: No Past Surgical History Appendectomy: Yes Genitourinary Surgery: Yes (LITHOTRIPSY) Other Surgery: Yes (hernia repair 2009) Social History Alcohol Use: Yes (4 GLASSES WINE NIGHTLY) Tobacco Use: No Substance Use: No Allergies-Medications (Allergen,Severity, Reaction): Coded Allergies: No Known Allergies (Verified , 07/20/16) Reported Meds & Prescriptions Reported Meds & Active Scripts Active Estella-Colace (Sennosides-Docusate Sodium) 8.6-50 Mg Tab 1 Tab PO BID Reported Advil (Ibuprofen) 200 Mg Tab 400 Mg PO EVERY OTHER DAY Biotin Unknown Strength Cap Unknown Dose PO HS Beta Carotene Unknown Strength Cap Unknown Dose PO HS Saw [place] Plus (Misc Natural Products) 1 Cap Cap 900 Mg PO HS Milk Thistle 250 Mg Cap 250 Mg PO HS Gnp Melatonin (Melatonin) 3 Mg Tab 12 Mg PO HS Garlic 400 Mg Tab 800 Mg PO HS Alph-E (Vitamin E) 400 Unit Cap 400 Units PO HS Vitamin A 25,000 Unit Cap 25,000 Units PO HS Fish Oil 1000 mg (Azalea-3 Fatty Acids) 1 Cap Cap 1,000 Mg PO HS Multi Vitamin (Multiple Vitamin) 1 Tab Tab 1 Tab PO HS Preservision-Lutein (Multiple Vitamins W/ Minerals) 1 Cap 1 Cap PO HS Vitamin D3 (Cholecalciferol) 2,000 Unit Cap 2,000 Units PO DAILY Benazepril-Hydrochlorothiazide 20-12.5 Mg Tab 1 Tab PO DAILY Aspirin 325 Mg Tab 650 Mg PO DAILY Review of Systems General / Constitutional: No: Fever Eyes: No: Visual changes HENT: No: Headaches Cardiovascular: No: Chest Pain or Discomfort Respiratory: No: Shortness of Breath Gastrointestinal: No: Abdominal Pain Genitourinary: No: Dysuria Musculoskeletal: No: Pain Skin: No Rash Neurologic: No: Weakness Psychiatric: No: Depression Endocrine: No: Polydipsia Hematologic/Lymphatic: No: Easy Bruising Physical Exam Narrative GENERAL: No acute distress, nontoxic SKIN: Focused skin assessment warm/dry. HEAD: Atraumatic. Normocephalic. EYES: Pupils equal and round. No scleral icterus. No injection or drainage. ENT: No nasal bleeding or discharge. Mucous membranes pink and moist. NECK: Trachea midline. No JVD. CARDIOVASCULAR: Regular rate and rhythm. No murmur appreciated. RESPIRATORY: No accessory muscle use. Clear to auscultation. Breath sounds equal bilaterally. GASTROINTESTINAL: Abdomen soft, non-tender, nondistended. Hepatic and splenic margins not palpable. MUSCULOSKELETAL: No obvious deformities. No clubbing. Patient with right arm in splint, patient hand is warm, there is bruising to his hands, pulses intact, neurovascularly intact, patient with good range of motion and strength to all fingers as well as wrist. NEUROLOGICAL: Awake and alert. No obvious cranial nerve deficits. Motor grossly within normal limits. Normal speech. PSYCHIATRIC: Appropriate mood and affect; insight and judgment normal. Data Data Last Documented VS Vital Signs Date Time Temp Pulse Resp B/P Pulse Ox O2 Delivery O2 Flow Rate FiO2 07/30/16 08:52 97.9 92 20 140/82 97 Room Air MDM Medical Decision Making Medical Screen Exam Complete: Yes Emergency Medical Condition: Yes Interpretation(s) Vital Signs Date Time Temp Pulse Resp B/P Pulse Ox O2 Delivery O2 Flow Rate FiO2 07/30/16 08:52 97.9 92 20 140/82 97 Room Air Differential Diagnosis Postop infection, postop swelling and bruising, arterial versus venous insufficiency though unlikely Narrative Course Patient is a 75-year-old male who was postop day #5 who presents to ER for evaluation of his right hand swelling and discoloration. Patient requests that his splint be loosened as it feels too tight, that he has no pain or discomfort any numbness or tingling to his hand,r reports that he has not been elevating his hand up above his heart to help decrease swelling. Reports that he just came to emergency room for his splint to be loosened. Splint was loosened, patient reports that he has been feeling much better. Patient with no neurovascular compromise, and to return to emergency room as reviewed with him in detail. Patient will follow-up with Dr. Cavanaugh on Tuesdays as scheduled Diagnosis Primary Impression: Post-operative state Patient Instructions: General Instructions Additional Instructions: Please follow up with Dr. Cavanaugh on Monday as scheduled Return to ER as needed Elevated and raise your hand above your heart to help decrease swelling Return to ER if symptoms worsen or progress Disposition: 01 DISCHARGE HOME Condition: Stable Bobbi Hoffmann DO Jul 30, 2016 09:16
== END 2016-07-30 09:31 | disposition home or self-care (01) ==
LOC: NEPE 08:49
DX: Z46.89 Encounter for fitting and adjustment of other specified devices (principal); Z98.890 Other specified postprocedural states; I10 Essential (primary) hypertension
CPT/HCPCS: 99281

== ENCOUNTER → 2016-10-25 | Outpatient (CLI) | payer MEDICARE, BC ==
[2016-10-25 14:41] LABS: BLOOD, URINE NEG (NEG); GLUCOSE,URINE NEG (NEG); KETONE, URINE NEG (NEG); NITRITE,URINE NEG (NEG); PH, URINE 5.5 (5.0-8.5); URINE COLOR LIGHT-YELLOW (YELLW/STRAW)
[2016-10-25 15:11] LABS: PROSTATE SPECIFIC ANTIGEN 1.22 NG/ML (0.00-4.00)
[2016-10-25 15:16] LABS: ANION GAP 9 MEQ/L (5-15); AST (GOT) 35 U/L (15-37); BICARBONATE 25.2 MEQ/L (21.0-32.0); BLOOD UREA NITROGEN 12 MG/DL (7-18); CHLORIDE 103 MEQ/L (98-107); GLOMERULAR FILTRATION RATE 75 ML/MIN (>89); GLUCOSE,FASTING 100 MG/DL (74-99); POTASSIUM 4.1 MEQ/L (3.5-5.1); SODIUM (NA) 137 MEQ/L (136-145)
[2016-10-25 15:28] LABS: ALKALINE PHOSPHATASE 58 U/L (45-117); ALT (GPT) 76 U/L (12-78); HDL CHOLESTEROL 56.5 MG/DL (40.0-60.0); LDL CHOLESTEROL 92 MG/DL (0-99); THYROXINE (T4) 6.3 MCG/DL (4.5-12.1); TOTAL BILIRUBIN ADULT 0.3 MG/DL (0.2-1.0)
[2016-10-25 15:38] LABS: AUTOMATED NEUTROPHIL # 3.5 TH/MM3 (1.8-7.7); BASOPHIL % 0.8 % (0.0-2.0); EOSINOPHIL # 0.3 TH/MM3 (0-0.4); EOSINOPHIL % 5.4 % (0.0-4.0); HEMATOCRIT 43.6 % (39.0-51.0); HEMO FLAGS DIFF FINAL; LYMPH % 26.4 % (9.0-44.0); LYMPHOCYTE # 1.6 TH/MM3 (1.0-4.8); MEAN CELL VOLUME 91.2 FL (80.0-100.0); MEAN CORPUSCULAR HEMOGLOBIN 30.7 PG (27.0-34.0); MEAN CORPUSCULAR HGB CONC 33.6 % (32.0-36.0); MONO % 9.3 % (0.0-8.0); NEUT % 58.1 % (16.0-70.0); PLATELET COUNT 163 TH/MM3 (150-450); RED BLOOD COUNT 4.78 MIL/MM3 (4.50-5.90); RED CELL DISTRIBUTION WIDTH 14.1 % (11.6-17.2); WHITE BLOOD COUNT 6.1 TH/MM3 (4.0-11.0)
== END ==
LOC: ELAB 11:02
DX: I10 Essential (primary) hypertension (principal); R53.83 Other fatigue; E78.5 Hyperlipidemia, unspecified; R97.20 Elevated prostate specific antigen [PSA]
CPT/HCPCS: 36415; 80053; 80061; 81001; 84153; 84436; 84443; 84480; 85025

== ENCOUNTER → 2016-11-01 | Day surgery (SDC) | payer MEDICARE, BC ==
[~2016-11-01] MED LIST changes: +GENTAMICIN SULFATE 80 MG/2 ML VIAL ONE; +LACTATED RINGER'S 1000 ML INJ 1,000 ML ONE; +MIDAZOLAM HCL 2 MG/2 ML VIAL ONE; +ONDANSETRON HCL 4 MG/2 ML VIAL IV PUSH ONE; +PROPOFOL 200 MG/20 ML AMP IV ONE; +SODIUM CHLORIDE 0.9% SOLN 100 ML BAG IV ONE
--- NOTE | 2016-11-01 15:37 | TN ---
cc: KIMBERLY COLLINS M.D. DATE OF SURGERY: 11/01/2016 PREOPERATIVE DIAGNOSIS 1. History of bladder cancer (ICD - 10 code Z85.51) 2. Persistent suspicious cytology. 3. Family history of bladder cancer POSTOPERATIVE DIAGNOSIS 1. History of bladder cancer (ICD - 10 code Z85.51) 2. Persistent suspicious cytology. 3. Family history of bladder cancer PROCEDURE: cystourethroscopy with bladder biopsy and (CPT code 95245) Cystourethroscopy bladder barbotage and bladder washings (CPT code 78893) INDICATIONS Mr. Andrews is a 76-year-old gentleman with previous history of low grade transitional cell carcinoma who as part of his surveillance cystoscopy is requesting this be done under general anesthesia. He did have a recent cytology that was positive for high-grade urothelial carcinoma. 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 The prostatic urethra shows bilateral hyper for hypertrophy with some mild obstructive component and elevated bladder neck. The bladder itself shows some mild trabeculations, ureteral orifice normal size, shape and position effluxing clear urine. There is a previous TUR scar on the left lateral wall, but essentially no keshawn lesions or suspicious mucosa identified. PROCEDURE IN DETAIL Procedure as well as risks and benefits were explained to the patient. Informed consent was obtained the patient was taken major operative theater where he was placed in supine position. The patient was identified as well as the operative site. Spencer time-out was preformed in standard fashion. At this time general anesthetic and prophylactic intravenous antibiotics consisting of gentamicin 80 mg was administered after adequate anesthetic he was placed in low dorsolithotomy position, prepped and draped usual sterile fashion. At this time a 22.5 German cystoscope with a 30 lens was inserted urethra and bladder with the above findings a 30 lens was exchanged for a 70 degree lens. The entire bladder was systematically surveyed. At this time using rigid biopsy forceps teleservices representative biopsies taken to the previous biopsy site on the left lateral wall and one in the trigone. These were sent for final pathological evaluation prior to performing this normal saline was used and bladder barbotage was performed and sent for cytological evaluation. A [employer] probe was used to fulgurate the biopsy sites. Care was taken not to fulgurate the ureteral orifices bilaterally. At this time after confirming hemostasis the bladder was decompressed cystoscope removed. The patient tolerated procedure well, reversed from anesthetic without difficulty and transferred to the recovery in stable condition to be discharged home when criteria is met. There are no obvious complications. MD TAMEKA Salazar/nirav /3:15 PM /3:26 PM
== END | disposition home or self-care (01) ==
LOC: ESDC 10:09
PROVIDERS: ATTEND Urology
DX: Z85.51 Personal history of malignant neoplasm of bladder (principal); Z80.52 Family history of malignant neoplasm of bladder
CPT/HCPCS: 00910; 52204; 88112; 88305; J1580; J2250; J2405; J3010; J7120; 82270

== ENCOUNTER → 2016-11-29 | Day surgery (SDC) | payer MEDICARE, BC ==
[~2016-11-29] MED LIST changes: +IOHEXOL 180 MG/ML 20 ML VIAL (for RAD DIAG) OTHER ONE; +MEPERIDINE HCL 25 MG/ML VIAL ONE; +SODIUM CHLORIDE 0.9% 20 ML VIAL ONE; -SODIUM CHLORIDE 0.9% SOLN 100 ML BAG IV ONE
--- NOTE | 2016-11-29 14:18 | TN ---
cc: KIMBERLY COLLINS M.D. DATE OF SURGERY: 11/29/2016 PREOPERATIVE DIAGNOSIS 1. Positive urine cytology (ICD-10 code R89.6). 2. Bladder cancer (ICD-10 code C67.9). POSTOPERATIVE DIAGNOSIS 1. Positive urine cytology (ICD-10 code R89.6). 2. Bladder cancer (ICD-10 code C67.9). PROCEDURE 1. Cystourethroscopy with bilateral ureteroscopy (CPT code 55490-26). 2. Cystourethroscopy with bladder biopsy (CPT code 17581-63). 3. Cystourethroscopy with bilateral retrograde pyelography (CPT code 70324-11), (CPT code 36130-71-26). 4. Bladder washings (CPT code 14229-82). 5. Bilateral renal pelvic washings. INDICATIONS Mr. Andrews is a 76-year-old gentleman with a personal and family history of bladder cancer, who has had persistent cytology consistent with high-grade transitional cell carcinoma, but unable to identify any current etiology for the findings. He presents now for further evaluation as well as upper tract evaluation. FINDINGS Normal anterior urethra. The posterior urethra shows mild bulbomembranous urethral stricture. Prostatic urethra shows bilateral hypertrophy with some mild obstructive component. The bladder itself shows some mild trabeculation. Ureteral orifices are normal size, shape and position, effluxing clear urine. There is some healing scar of both the mid trigone as well as the left lateral wall from recent biopsy. No additional abnormalities within the bladder noted. The retrograde pyelograms were also within normal limits as well as the ureteroscopy and pyeloscopy. PROCEDURE IN DETAIL The procedure as well as risks and benefits were explained to the patient. Informed consent was obtained. The patient was taken to the major operating theater where he was placed in supine position. The patient was identified as well as the operative site. The universal timeout was performed in the standard fashion. At this time general anesthetic and prophylactic intravenous antibiotics were administered. After adequate anesthetic he was placed in low dorsal lithotomy position, prepped and draped in the usual sterile fashion. At this time a 21-Armenian cystoscope with a 30-degree lens was inserted in the urethra and bladder with the above findings. The previous biopsy site was resected completely and a Bugbee probe was used to fulgurate that site. Prior to performing the biopsy, bladder barbotage was performed and bladder washings were sent for cytological evaluation. Additionally, bilateral renal pelvic washings were also performed in a standard fashion and sent for cytology. At this time bilateral retrograde pyelography was performed and failed to show any obvious evidence of any abnormalities. Using both the rigid and flexible ureteroscope and the assistance of guidewires the collecting system was systematically surveyed with the above findings. At this time after confirming no trauma to the ureters and clear urine effluxing, the bladder was decompressed, the cystoscope removed. The patient tolerated the procedure well, emerged from anesthetic without difficulty, and was transferred to the recovery room in stable condition to be discharged home when criteria is met. There were no obvious complications. MD TAMEKA Salazar/BENJA /1:49 PM /2:03 PM SUSAN
== END | disposition home or self-care (01) ==
LOC: ESDC 10:08
PROVIDERS: ATTEND Urology
DX: C67.9 Malignant neoplasm of bladder, unspecified (principal); R89.6 Abnormal cytological findings in specimens from other organs, systems and tissues
CPT/HCPCS: 00910; 52204; 52351; 76000; 88112; 88305; C1769; J1580; J2175; J2250; J2405; J3010; J7120; Q9965; 88307

== ENCOUNTER → 2017-08-23 | Outpatient (CLI) | payer MEDICARE, BC ==
[~2017-08-23] MED LIST changes: +ASPI-183 PO; -ASPI325T PO; -GENTAMICIN SULFATE 80 MG/2 ML VIAL ONE; -GNP3TAB PO; -IOHEXOL 180 MG/ML 20 ML VIAL (for RAD DIAG) OTHER ONE; -LACTATED RINGER'S 1000 ML INJ 1,000 ML ONE; +MELA1TAB33 PO; -MEPERIDINE HCL 25 MG/ML VIAL ONE; -MIDAZOLAM HCL 2 MG/2 ML VIAL ONE; -ONDANSETRON HCL 4 MG/2 ML VIAL IV PUSH ONE; -PROPOFOL 200 MG/20 ML AMP IV ONE; -SODIUM CHLORIDE 0.9% 20 ML VIAL ONE
== END ==
LOC: ELAB 10:25
DX: C67.9 Malignant neoplasm of bladder, unspecified (principal)
CPT/HCPCS: 36415; 82378